=== PATIENT | male | born 1960 | race Caucasian/White ===

== ENCOUNTER 2017-03-27 15:23 | Emergency (ER) | payer OTHER ==
[2017-03-27 15:50] VITALS: BP 153/82
--- NOTE | 2017-03-27 16:09 | EDM.PDOC ---
[id number] 4d GOUT Time Seen by Provider: 03/27/17 15:56 Source of Information: Reports: Patient History Limitations: Reports: No Limitations - History of Present Illness INITIAL COMMENTS - FREE TEXT/NARRATIVE: 56 presents with left great toe pain. hx of gout. mild pain 2 days woke with mild ache that has progressively worsened. Last flare of gout was over 6 months ago Right Feet Pain Score (Numeric/FACES): 3 - Related Data Allergies Allergy/AdvReac Type Severity Reaction Status Date / Time No Known Allergies Allergy Verified 03/27/17 15:50 Home Meds: Home Meds NK [No Known Home Meds] 03/27/17 [History] Past Medical History Musculoskeletal History: Reports: Gout Social & Family History - Tobacco Use Smoking Status *Q: Unknown Ever Smoked ED ROS GENERAL - Review of Systems Review Of Systems: See Below Constitutional: Denies: Fever, Chills Respiratory: Denies: Shortness of Breath, Wheezing Cardiovascular: Denies: Chest Pain Skin: Denies: Wound ED EXAM, GENERAL - Physical Exam Exam: See Below Exam Limited By: No Limitations General Appearance: Alert, WD/WN, No Apparent Distress Respiratory/Chest: No Respiratory Distress Extremities: Other (mild edema, mild erythema, very tender to the touch left great toe) Course - Vital Signs Last Recorded V/S: Last Vital Signs Temp 36.7 C 03/27/17 15:47 Pulse 51 L 03/27/17 15:47 Resp 15 03/27/17 15:47 BP 153/82 H 03/27/17 15:47 Pulse Ox 95 03/27/17 15:47 Departure - Departure Time of Disposition: 16:03 Disposition: Home, Self-Care 01 Condition: Good Clinical Impression: Gout Qualifiers: Gout site: foot Gout etiology: unspecified cause Chronicity: acute Laterality: right Qualified Code(s): M10.9 - Gout, unspecified - Discharge Information Instructions: Gout, [id number] Referrals: PCP,None [Primary Care Provider] - Forms: ED Department Discharge Additional Instructions: indomethacin 50 mg three times per day for three days then decreasing to 2 times per day for 3 days, take with food increase fluid intake with goal of 2 liters per day follow-up with primary care provider if no improvement
== END 2017-03-27 16:14 | disposition home or self-care (01) ==
LOC: JP.ED 15:23
DX: M10.9 Gout, unspecified (principal)
CPT/HCPCS: 99283